=== PATIENT | male | born 1965 | race African-American/Black ===

== ENCOUNTER 2020-01-04 15:51 | Emergency (ER) | payer MEDICAID ==
[~2020-01-04] VITALS: Ht 182.9 cm; Wt 77.1 kg
[2020-01-04 16:04] VITALS: BP_SYST 113
--- NOTE | 2020-01-04 16:04 | NUR ---
Patient to ER bed h1 to gown for evaluation. Side rails up.
--- NOTE | 2020-01-04 16:08 | NUR ---
ER at bedside examining patient.
--- NOTE | 2020-01-04 16:10 | NUR ---
pt bib law enforcement for an ok to book. Pt states that he has hypertensive and has gonerrhea. No other c/o at the moment
[2020-01-04 16:28] VITALS: BP_SYST 113
--- NOTE | 2020-01-04 16:29 | NUR ---
Patient given written and verbal discharge instructions and verbalizes understanding. ER MD discussed with patient the results and treatment provided. Patient in stable condition. ID arm band removed. Patient educated on pain management and to follow up with PMD. Pain Scale 0/10. Opportunity for questions provided and answered. Medication side effect fact sheet provided. Pt released to the custody of law enforcement
== END 2020-01-04 16:29 ==
LOC: EDUNIT# 15:51 → SED 15:51
DX: R07.89 Other chest pain (principal); I10 Essential (primary) hypertension
CPT/HCPCS: 99283